=== PATIENT | female | born 1960 | race Caucasian/White ===

== ENCOUNTER 2017-08-08 23:09 | Inpatient (IN) | payer OTHER ==
[~2017-08-08] VITALS: Ht 160 cm; Wt 65.8 kg
[2017-08-08 23:15] VITALS: BP_SYST 141
[2017-08-09] MEDS ORDERED: NACL 0.9% 1,000 ML IV ONE (00:30)
[2017-08-09] MEDS ORDERED: KETOROLAC TROMETHAMINE 30 MG VIAL IVP ONE (00:30)
[2017-08-09 00:57] LABS: BASOPHILS # (AUTO) 0.1 K/uL (0.0-0.2); BASOPHILS % (AUTO) 0.5 % (0.0-2.0); EOSINOPHILS # (AUTO) 0.1 K/uL (0.0-0.4); EOSINOPHILS % (AUTO) 0.9 % (0.0-4.0); HEMATOCRIT 42.6 % (36-48); HEMOGLOBIN 14.2 g/dL (12.0-16.0); LYMPHOCYTES # (AUTO) 3.5 K/uL (1.0-5.5); LYMPHOCYTES % (AUTO) 30.8 % (20.5-51.5); MEAN CORPUSCULAR HEMOGLOBIN 32 pg (27-31); MEAN CORPUSCULAR HGB CONC 33 % (32-36); MEAN CORPUSCULAR VOLUME 95 fL (79.0-98.0); MONOCYTES % (AUTO) 8.8 % (1.7-9.3); NEUTROPHILS # (AUTO) 6.8 K/uL (1.8-7.7); PLATELET COUNT (AUTO) 196 K/uL (130-430); RED BLOOD CELL COUNT(AUTO) 4.47 MIL/uL (4.2-6.2); WHITE BLOOD COUNT (AUTO) 11.4 K/uL (4.8-10.8)
[2017-08-09 01:06] LABS: CALCIUM 9.5 mg/dL (8.4-11.0); CREATININE 0.6 mg/dL (0.55-1.30); POTASSIUM 3.5 mmol/L (3.5-5.1)
[2017-08-09 01:09] LABS: PROTHROMBIN TIME 9.8 SECS (9.5-12.5)
[2017-08-09 01:11] LABS: ALBUMIN 3.7 g/dL (3.4-4.8); TOTAL BILIRUBIN 0.5 mg/dL (0.0-1.0)
[2017-08-09] MEDS ORDERED: LEVOFLOXACIN 500 MG/D5W 100 ML IV ONE (01:30)
[2017-08-09] MEDS ORDERED: metroNIDAZOLE 500 mg/NS 100 ML IV ONE ×2 (01:30→03:02)
[2017-08-09 02:51] VITALS: BP_SYST 137
[2017-08-09] MEDS ORDERED: FLU VACC QS 2017-18(36MOS+)/PF 0.5 ML/SYR SYRINGE I.M. PRN (03:30)
[2017-08-09 03:44] VITALS: BP_SYST 137
[2017-08-09] MEDS: D5/0.45 NS 1,000 ML IV SCH ×3 (05:31→22:30)
[2017-08-09] MEDS: metroNIDAZOLE 500 mg/NS 100 ML IV SCH ×3 (05:32→21:40)
[2017-08-09 08:00] VITALS: BP_SYST 131
[2017-08-09 08:00] LABS: BASOPHILS # (AUTO) 0.1 K/uL (0.0-0.2); BASOPHILS % (AUTO) 0.6 % (0.0-2.0); EOSINOPHILS # (AUTO) 0.1 K/uL (0.0-0.4); EOSINOPHILS % (AUTO) 1.1 % (0.0-4.0); HEMATOCRIT 40.2 % (36-48); HEMOGLOBIN 13.6 g/dL (12.0-16.0); LYMPHOCYTES # (AUTO) 2.6 K/uL (1.0-5.5); LYMPHOCYTES % (AUTO) 28.4 % (20.5-51.5); MEAN CORPUSCULAR HEMOGLOBIN 32 pg (27-31); MEAN CORPUSCULAR HGB CONC 34 % (32-36); MEAN CORPUSCULAR VOLUME 95 fL (79.0-98.0); MONOCYTES # (AUTO) 0.8 K/uL (0.0-1.0); MONOCYTES % (AUTO) 8.3 % (1.7-9.3); NEUTROPHILS # (AUTO) 5.5 K/uL (1.8-7.7); NEUTROPHILS % (AUTO) 61.6 % (40.0-70.0); PLATELET COUNT (AUTO) 191 K/uL (130-430); RED BLOOD CELL COUNT(AUTO) 4.23 MIL/uL (4.2-6.2); WHITE BLOOD COUNT (AUTO) 9.1 K/uL (4.8-10.8)
[2017-08-09] MEDS: MORPHINE 2 MG/ML INJ. SYRINGE IVP PRN ×3 (08:06→19:46)
[2017-08-09 08:08] LABS: CALCIUM 8.5 mg/dL (8.4-11.0); CREATININE 0.65 mg/dL (0.55-1.30)
[2017-08-09 08:15] LABS: ALBUMIN 3.1 g/dL (3.4-4.8); TOTAL BILIRUBIN 0.6 mg/dL (0.0-1.0)
[2017-08-09 11:38] VITALS: BP_SYST 136
[2017-08-09 15:36] VITALS: BP_SYST 144
[2017-08-09] MEDS: LEVOFLOXACIN 500 MG/D5W 100 ML IV SCH (20:36)
[2017-08-10 00:39] VITALS: BP_SYST 113
[2017-08-10 04:45] VITALS: BP_SYST 108
[2017-08-10] MEDS: D5/0.45 NS 1,000 ML IV SCH ×2 (05:17→18:24)
[2017-08-10] MEDS: metroNIDAZOLE 500 mg/NS 100 ML IV SCH ×3 (05:17→21:38)
[2017-08-10] MEDS: MORPHINE 2 MG/ML INJ. SYRINGE IVP PRN ×2 (07:28→22:27)
[2017-08-10 07:30] VITALS: BP_SYST 128
[2017-08-10 12:00] VITALS: BP_SYST 135
[2017-08-10 16:17] VITALS: BP_SYST 132
[2017-08-10 19:45] VITALS: BP_SYST 134
[2017-08-10] MEDS ORDERED: ACETAMINOPHEN 325 MG TABLET PO PRN (21:30)
[2017-08-10] MEDS: LEVOFLOXACIN 500 MG/D5W 100 ML IV SCH (22:26)
[2017-08-10] MEDS: ONDANSETRON HCL 4 MG/2 ML VIAL IVP PRN (22:27)
[2017-08-10] MEDS: TEMAZEPAM 15 MG CAPSULE PO PRN (22:28)
[2017-08-11 00:38] VITALS: BP_SYST 107
[2017-08-11 04:36] VITALS: BP_SYST 127
[2017-08-11] MEDS: D5/0.45 NS 1,000 ML IV SCH ×2 (05:38→15:25)
[2017-08-11] MEDS: metroNIDAZOLE 500 mg/NS 100 ML IV SCH ×3 (06:03→22:23)
[2017-08-11 07:15] LABS: BASOPHILS % (AUTO) 0.4 % (0.0-2.0); EOSINOPHILS # (AUTO) 0.2 K/uL (0.0-0.4); EOSINOPHILS % (AUTO) 2.5 % (0.0-4.0); HEMATOCRIT 39.5 % (36-48); HEMOGLOBIN 13.6 g/dL (12.0-16.0); LYMPHOCYTES # (AUTO) 2.6 K/uL (1.0-5.5); LYMPHOCYTES % (AUTO) 43.5 % (20.5-51.5); MEAN CORPUSCULAR HEMOGLOBIN 33 pg (27-31); MEAN CORPUSCULAR HGB CONC 35 % (32-36); MEAN CORPUSCULAR VOLUME 95 fL (79.0-98.0); MONOCYTES # (AUTO) 0.5 K/uL (0.0-1.0); MONOCYTES % (AUTO) 7.7 % (1.7-9.3); NEUTROPHILS # (AUTO) 2.8 K/uL (1.8-7.7); NEUTROPHILS % (AUTO) 45.9 % (40.0-70.0); PLATELET COUNT (AUTO) 181 K/uL (130-430); RED BLOOD CELL COUNT(AUTO) 4.16 MIL/uL (4.2-6.2); RED CELL DISTRIBUTION WIDTH 12.2 % (9.0-15.0); WHITE BLOOD COUNT (AUTO) 6.1 K/uL (4.8-10.8)
[2017-08-11 07:36] LABS: CALCIUM 8.9 mg/dL (8.4-11.0); CREATININE 0.62 mg/dL (0.55-1.30); POTASSIUM 3.6 mmol/L (3.5-5.1); TOTAL BILIRUBIN 0.4 mg/dL (0.0-1.0)
[2017-08-11 08:00] VITALS: BP_SYST 132
[2017-08-11 12:55] VITALS: BP_SYST 131
[2017-08-11 16:20] VITALS: BP_SYST 125
[2017-08-11] MEDS: LEVOFLOXACIN 500 MG/D5W 100 ML IV SCH (20:37)
[2017-08-11] MEDS: ONDANSETRON HCL 4 MG/2 ML VIAL IVP PRN (22:22)
[2017-08-11] MEDS: MORPHINE 2 MG/ML INJ. SYRINGE IVP PRN (22:23)
[2017-08-11] MEDS: TEMAZEPAM 15 MG CAPSULE PO PRN (22:55)
[2017-08-11 23:39] VITALS: BP_SYST 148
[2017-08-12] MEDS: D5/0.45 NS 1,000 ML IV SCH ×2 (03:49→10:30)
[2017-08-12 04:38] VITALS: BP_SYST 135
[2017-08-12] MEDS: metroNIDAZOLE 500 mg/NS 100 ML IV SCH (06:53)
[2017-08-12 07:14] LABS: BASOPHILS % (AUTO) 0.4 % (0.0-2.0); EOSINOPHILS # (AUTO) 0.2 K/uL (0.0-0.4); EOSINOPHILS % (AUTO) 3.5 % (0.0-4.0); HEMATOCRIT 39.5 % (36-48); HEMOGLOBIN 13.6 g/dL (12.0-16.0); LYMPHOCYTES # (AUTO) 2.6 K/uL (1.0-5.5); LYMPHOCYTES % (AUTO) 45.1 % (20.5-51.5); MEAN CORPUSCULAR HEMOGLOBIN 33 pg (27-31); MEAN CORPUSCULAR HGB CONC 34 % (32-36); MEAN CORPUSCULAR VOLUME 96 fL (79.0-98.0); MONOCYTES # (AUTO) 0.5 K/uL (0.0-1.0); MONOCYTES % (AUTO) 9.6 % (1.7-9.3); NEUTROPHILS # (AUTO) 2.3 K/uL (1.8-7.7); NEUTROPHILS % (AUTO) 41.4 % (40.0-70.0); PLATELET COUNT (AUTO) 222 K/uL (130-430); RED CELL DISTRIBUTION WIDTH 11.9 % (9.0-15.0); WHITE BLOOD COUNT (AUTO) 5.6 K/uL (4.8-10.8)
[2017-08-12 07:39] LABS: CALCIUM 8.8 mg/dL (8.4-11.0); CREATININE 0.75 mg/dL (0.55-1.30); POTASSIUM 3.3 mmol/L (3.5-5.1); TOTAL BILIRUBIN 0.3 mg/dL (0.0-1.0)
[2017-08-12] MEDS ORDERED: LEVO500T20 PO (09:09)
[2017-08-12] MEDS ORDERED: METR500T PO (09:10)
[2017-08-12 10:13] VITALS: BP_SYST 98
== END 2017-08-12 10:28 | disposition home or self-care (01) | DRG 392 ==
LOC: SED 23:09 → SMU 08-09 01:35
PROVIDERS: ATTEND Internal Medicine Hospice and Palliative Medicine
DX: K57.32 Diverticulitis of large intestine without perforation or abscess without bleeding (principal); R93.5 Abnormal findings on diagnostic imaging of other abdominal regions, including retroperitoneum
CPT/HCPCS: 36415; 80053; 82378; 83605; 85025; 85610-TC; 85730-TC; 87040-TC; 96365; 96375; 99285; J1885; J1956; J2270; J2405; J3490; J7030; Q2037